=== PATIENT | male | born 1975 | race Caucasian/White ===

== ENCOUNTER 2017-09-21 22:37 | Observation (INO) | payer BC, OTHER ==
[~2017-09-21] VITALS: Ht 182.9 cm; Wt 96.2 kg
[2017-09-21] MEDS ORDERED: PANTOprazole INJ 40 MG in SYRINGE 0 ML IV ONE (23:45)
[2017-09-21] MEDS ORDERED: SODIUM CHLORIDE 0.9% 1000ML 1,000 ML IV ONE (23:45)
[2017-09-22] VITALS (16 sets, daily range): BP systolic 109–129; BP diastolic 53–75; PULSE 57–77; TEMP 36.4–37.1; O2SAT 96–100; Ht 182.9 cm; Wt 96.2 kg
[2017-09-22 00:03] LABS: PTT PATIENT 24.5 SECONDS (21.0-31.0)
[2017-09-22 00:11] LABS: HEMATOCRIT 24.2 % (42-52); HEMOGLOBIN 5.9 g/dL (14.0-18.0); MEAN CORPUSCULAR HEMOGLOBIN 14.1 pg (25-34); MEAN CORPUSCULAR HGB CONC 24.4 g/dl (32-36); PLATELET COUNT 306 K/uL (130-400); RED CELL DISTRIBUTION WIDTH CV 21.6 % (11.5-14.5); RED CELL DISTRIBUTION WIDTH SD 45.4 fL (36.4-46.3); WHITE BLOOD COUNT 5.94 K/uL (4.8-10.8)
[2017-09-22 00:15] LABS: ALBUMIN 3.7 gm/dl (3.4-5.0); ALT/SGPT 16 U/L (12-78); AST/SGOT 8 U/L (15-37); BLOOD UREA NITROGEN 14 mg/dl (7-18); CALCIUM 8.4 mg/dl (8.5-10.1); CARBON DIOXIDE 27 mmol/L (21-32); CREATININE 0.85 mg/dl (0.60-1.40); GLUCOSE 78 mg/dl (70-99); LIPASE 92 U/L (73-393); POTASSIUM 3.9 mmol/L (3.5-5.1); SODIUM 138 mmol/L (136-145)
[2017-09-22 00:19] LABS: ALKALINE PHOSPHATASE 64 U/L (45-117); TOTAL PROTEIN 7.1 gm/dl (6.4-8.2)
[2017-09-22 00:26] LABS: BASO % 0.5 %; BASO ABS # 0.03 K/uL (0-0.2); EOS % 1.3 %; EOS ABS # 0.08 K/uL (0-0.5); IG# 0.02 K/uL (0.00-0.02); LYMPH % 23.4 %; LYMPH ABS # 1.39 K/uL (1.2-3.4); MONO % 12.3 %; MONO ABS # 0.73 K/uL (0.11-0.59); NEUT % 62.2 %; NEUT ABS # 3.69 K/uL (1.4-6.5)
[2017-09-22] MEDS ORDERED: ROPI1TAB PO ×2 (00:33)
[2017-09-22] MEDS ORDERED: PRLSR20 PO (00:33)
[2017-09-22] MEDS ORDERED: SERT50TA PO (00:33)
[2017-09-22] MEDS ORDERED: MAGNESIUM HYDROXIDE SUSP 30 ML UDC PO PRN (02:15)
[2017-09-22] MEDS ORDERED: ALUMINUM/MAGNESIUM/SIMETH (MAALOX MAX) 30 ML UDC PO PRN (02:15)
[2017-09-22] MEDS ORDERED: ONDANSETRON INJ 2 MG/ML 2 ML VIAL IV PRN (02:15)
[2017-09-22] MEDS ORDERED: ACETAMINOPHEN 325 MG TAB PO PRN (02:15)
[2017-09-22] MEDS ORDERED: POLYETHYLENE (MIRALAX) 17 GM PACK PO PRN (02:15)
--- NOTE | 2017-09-22 02:43 | History and Physical ---
History & Physical Date & Time of Service: Sep 22, 2017 at 02:22 Chief Complaint: Low Hemoglobin Primary Care Physician: Johny Collier PA-C History of Present Illness Source: patient 42 y/o M with history of RLS, GERD and hemorrhoids with chronic bleeding. The pt had labs drawn as a routine matter by his employer. He was notified the following day that his hemoglobin was low and told to attend the hospital. He was also informed that he had a high zinc level although additional metal levels were within normal limits. The pt denies SOB, palpitations or light- headedness. He arrived at the hospital as he was instructed to rather than due to symptoms. Initial Hb is 5.9 with an MCV of 58. He was guiac negative in the ER, however, he states he has to strain on the toilet to lose blood. The pt states that he was advised on pursuing hemorrhoid surgery several years ago. He had a colonoscopy and endoscopy 5 years prior due to BRBPR which apparently identified hemorrhoids as the etiology. Past Medical/Surgical History 1) Hemorrhoids with chronic blood loss 2) Restless leg syndrome 3) GERD Family History Father with history of prostate CA Social History Chews tobacco, does not smoke, 1-2 alcoholic beverages daily Smoking Status: Never Smoker Allergies Coded Allergies: No Known Allergies (Unverified , 09/22/17) Home Medications Scheduled Omeprazole (Prilosec), 20 MG PO DAILY Ropinirole (Requip), 1 MG PO QAM Ropinirole (Requip), 3 MG PO HS Sertraline (Zoloft), 50 MG PO DAILY Review of Systems Constitutional: No fever, No chills, No sweats Eyes: No worsening of vision, No eye pain ENT: No hearing loss, No nasal symptoms Respiratory: No cough, No sputum, No wheezing Cardiovascular: No chest pain, No orthopnea, No PND Abdomen: + GI bleeding (chronic BRBPR with BM), No pain, No nausea, No vomiting Musculoskeletal: No joint pain Genitourinary - Male: No hematuria, No dysuria Neurologic: No memory loss, No paralysis, No weakness Psychiatric: No depression symptoms Endocrine: No fatigue Hematologic / Lymphatic: No abnormal bleeding/bruising Integumentary: No rash Allergic / Immunologic: No environmental allergies Physical Exam Vital Signs Date Time Temp Pulse Resp B/P (MAP) Pulse Ox O2 Delivery O2 Flow Rate FiO2 09/22/17 01:36 124/68 97 Room Air 09/22/17 01:30 67 16 09/22/17 01:00 75 23 09/22/17 00:00 60 20 127/84 98 Room Air 09/21/17 23:48 63 09/21/17 22:42 37.1 88 18 128/76 96 Room Air General Appearance: WD/WN, no apparent distress, + pertinent finding (Pale young male in no distress) Head: normocephalic Eyes: normal inspection ENT: normal ENT inspection, pharynx normal Neck: supple, no JVD Respiratory/Chest: chest non-tender, lungs clear, normal breath sounds Cardiovascular: regular rate, rhythm, no edema, no gallop Abdomen/GI: normal bowel sounds, non tender, soft Back: normal inspection, no CVA tenderness Extremities/Musculoskelatal: normal inspection Neurologic/Psych: stereotyper helper II-XII nml as tested, no motor/sensory deficits, alert, oriented x 3 Skin: normal color Diagnostics Laboratory Results Results Past 24 Hours Test 09/21/17 23:30 09/22/17 02:15 09/22/17 02:19 Range/Units White Blood Count 5.94 4.8-10.8 K/uL Red Blood Count 4.17 4.7-6.1 M/uL Hemoglobin 5.9 14.0-18.0 g/dL Hematocrit 24.2 42-52 % Mean Corpuscular Volume 58.0 80-100 fL Mean Corpuscular Hemoglobin 14.1 25-34 pg Mean Corpuscular Hemoglobin Concent 24.4 32-36 g/dl Platelet Count 306 130-400 K/uL Neutrophils (%) (Auto) 62.2 % Lymphocytes (%) (Auto) 23.4 % Monocytes (%) (Auto) 12.3 % Eosinophils (%) (Auto) 1.3 % Basophils (%) (Auto) 0.5 % Neutrophils # (Auto) 3.69 1.4-6.5 K/uL Lymphocytes # (Auto) 1.39 1.2-3.4 K/uL Monocytes # (Auto) 0.73 0.11-0.59 K/uL Eosinophils # (Auto) 0.08 0-0.5 K/uL Basophils # (Auto) 0.03 0-0.2 K/uL RDW Standard Deviation 45.4 36.4-46.3 fL RDW Coefficient of Variation 21.6 11.5-14.5 % Immature Granulocyte % (Auto) 0.3 % Immature Granulocyte # (Auto) 0.02 0.00-0.02 K/uL Hypochromasia PRESENT Poikilocytosis PRESENT Anisocytosis PRESENT Tear Drop Cells 1+ Schistocytes 1+ Absolute Reticulocyte Count 0.04 0.02-0.10 10^6/uL Percent Reticulocyte Count 1.0 0.5-2.0 % Prothrombin Time 10.8 9.0-12.0 SECONDS Prothromb Time International Ratio 1.0 0.9-1.1 Activated Partial Thromboplast Time 24.5 21.0-31.0 SECONDS Partial Thromboplastin Ratio 0.9 Sodium Level 138 136-145 mmol/L Potassium Level 3.9 3.5-5.1 mmol/L Chloride Level 105 98-107 mmol/L Carbon Dioxide Level 27 21-32 mmol/L Anion Gap 6.0 3-11 mmol/L Blood Urea Nitrogen 14 7-18 mg/dl Creatinine 0.85 0.60-1.40 mg/dl Estimated GFR () 123.7 Estimated GFR (Non- 106.7 BUN/Creatinine Ratio 16.3 10-20 Random Glucose 78 70-99 mg/dl Calcium Level 8.4 8.5-10.1 mg/dl Total Bilirubin 0.7 0.2-1 mg/dl Direct Bilirubin 0.2 0-0.2 mg/dl Aspartate Amino Transf (AST/SGOT) 8 15-37 U/L Alanine Aminotransferase (ALT/SGPT) 16 12-78 U/L Alkaline Phosphatase 64 45-117 U/L Troponin I < 0.015 0-0.045 ng/ml Total Protein 7.1 6.4-8.2 gm/dl Albumin 3.7 3.4-5.0 gm/dl Lipase 92 73-393 U/L Impression Assessment and Plan 42 y/o M with history of RLS, GERD and hemorrhoids with chronic bleeding. The pt had labs drawn as a routine matter by his employer. He was notified the following day that his hemoglobin was low and told to attend the hospital. He was also informed that he had a high zinc level although additional metal levels were within normal limits. The pt denies SOB, palpitations or light- headedness. He arrived at the hospital as he was instructed to rather than due to symptoms. Initial Hb is 5.9 with an MCV of 58. 1) Anemia - pt is assigned to the medical floor primarily for transfusions. The most likely explanation for his anemia is chronic blood loss from hemorrhoids as he admits to ongoing bleeding for several years. Slow loss would explain his lack of symptoms as he has had adequate time to adapt. The confounding factor in his anemia is a high zinc level. This may in turn affect copper metabolism leading to low levels, RBC dysfunction and anemia. We have ordered Iron levels, ferritin, TIBC, copper, retic count and a peripheral smear. We may want to source his initial labs in the AM and repeat a Zinc level. Regarding his hemorrhoids and chronic loss, he should be referred to a colorectal surgeon upon DC. I am less concerned currently with additional sources of blood loss or acute blood loss which would change his disposition. Transfusion of 2 units should be adequate in the short-term. 2) RLS - cont Ropinirole 3) GERD - cont PPi Full code - SCDs total time for this admit including review of labs, meds, imaging - discussion with pt and ER attending - 36 min Level of Care Med/Surg Resuscitation Status FULL RESUSCITATION VTE Prophylaxis VTE Risk Assessment Done? Y/N: Yes Risk Level: Low Given or contraindicated: SCD's
[2017-09-22] MEDS ORDERED: IV FLUIDS COMPLETED PRN (05:45)
--- NOTE | 2017-09-22 07:13 | Family Medicine Progress Note ---
Progress Note Date of Service Sep 22, 2017. Subjective Pt evaluation today including: conversation w/ patient, physical exam, chart review, lab review Patient reports that he became aware of low Hgb when receiving a physical for work. Patient denies feeling symptomatic. Denies chest pain, SOB. Patient denies abdominal pain or bloody stools, but does report chronic bleeding hemorrhoids. History of working on power lines. Constitutional: No fever, No chills Respiratory: No cough, No sputum, No wheezing, No shortness of breath Cardiovascular: No chest pain, No palpitations Abdomen: No pain, No nausea, No vomiting, No diarrhea, No GI bleeding Male : No dysuria Medications Current Inpatient Medications Medications (Trade) Dose Ordered Sig/Rene Route Start Time Stop Time Status Last Admin Dose Admin Ropinirole HCl (Requip Tab) 1 mg QAM PO 09/22/17 09:00 10/22/17 08:59 09/22/17 11:20 1 MG Ropinirole HCl (Requip Tab) 3 mg HS PO 09/22/17 21:00 10/22/17 20:59 Sertraline HCl (Zoloft Tab) 50 mg DAILY PO 09/22/17 09:00 10/22/17 08:59 09/22/17 08:11 50 MG Acetaminophen (Tylenol Tab) 650 mg Q4H PRN PO 09/22/17 02:15 10/22/17 02:14 Al Hydrox/Mg Hydrox/Simethicone (Maalox Max Susp) 15 ml Q4H PRN PO 09/22/17 02:15 10/22/17 02:14 Magnesium Hydroxide (Milk Of Magnesia Susp) 30 ml Q6H PRN PO 09/22/17 02:15 10/22/17 02:14 Polyethylene (Miralax Powder Packet) 17 gm DAILY PRN PO 09/22/17 02:15 10/22/17 02:14 Ondansetron HCl (Zofran Inj) 4 mg Q6H PRN IV 09/22/17 02:15 10/22/17 02:14 Miscellaneous (Iv Fluids Completed) 1 ea PRN PRN N/A 09/22/17 05:45 09/22/18 05:44 Objective Vital Signs Date Time Temp Pulse Resp B/P (MAP) Pulse Ox O2 Delivery O2 Flow Rate FiO2 09/22/17 15:54 36.7 63 18 129/75 (93) 100 Room Air 09/22/17 08:00 Room Air 09/22/17 07:20 36.8 69 20 120/66 (84) 96 Room Air 09/22/17 07:00 36.8 69 20 120/66 96 09/22/17 06:30 36.7 57 18 122/69 98 09/22/17 06:15 36.6 62 18 128/53 98 09/22/17 06:00 36.8 62 14 129/66 98 09/22/17 05:00 36.7 62 18 123/63 98 09/22/17 04:30 36.8 61 18 128/66 99 09/22/17 04:12 36.7 77 16 120/73 99 Room Air 09/22/17 04:00 36.9 64 18 127/66 98 09/22/17 03:45 36.8 64 18 124/73 98 09/22/17 03:30 36.8 65 16 129/71 09/22/17 02:35 68 20 126/71 98 09/22/17 01:36 124/68 97 Room Air 09/22/17 01:30 67 16 09/22/17 01:00 75 23 09/22/17 00:00 60 20 127/84 98 Room Air 09/21/17 23:48 63 09/21/17 22:42 37.1 88 18 128/76 96 Room Air Physical Exam General Appearance: WD/WN, no apparent distress Respiratory/Chest: chest non-tender, lungs clear, normal breath sounds Cardiovascular: regular rate, rhythm, no edema, no murmur Abdomen: normal bowel sounds, non tender, soft Neurologic/Psychiatric: alert, normal mood/affect, oriented x 3 Skin: normal color, warm/dry, no rash Laboratory Results 09/22/17 08:27 Red Blood Count 4.72, Mean Corpuscular Volume 61.7 #, Mean Corpuscular Hemoglobin 15.7, Mean Corpuscular Hemoglobin Concent 25.4, Neutrophils (%) (Auto ) 71.2, Lymphocytes (%) (Auto) 18.5, Monocytes (%) (Auto) 8.6, Eosinophils (%) ( Auto) 1.1, Basophils (%) (Auto) 0.4, Neutrophils # (Auto) 3.72, Lymphocytes # ( Auto) 0.97, Monocytes # (Auto) 0.45, Eosinophils # (Auto) 0.06, Basophils # ( Auto) 0.02 09/22/17 08:27 Test 09/21/17 23:30 09/22/17 02:34 09/22/17 08:27 Tear Drop Cells 1+ Schistocytes 1+ Peripheral Blood Smear Path Consult Absolute Reticulocyte Count 0.04 10^6/uL (0.02-0.10) Percent Reticulocyte Count 1.0 % (0.5-2.0) Prothrombin Time 10.8 SECONDS (9.0-12.0) Prothromb Time International Ratio 1.0 (0.9-1.1) Activated Partial Thromboplast Time 24.5 SECONDS (21.0-31.0) Partial Thromboplastin Ratio 0.9 Iron Level 13 mcg/dl (35-175) Total Iron Binding Capacity 480 mcg/dl (250-450) Ferritin 0.9 ng/ml (8.0-388.0) Total Bilirubin 0.7 mg/dl (0.2-1) Direct Bilirubin 0.2 mg/dl (0-0.2) Aspartate Amino Transf (AST/SGOT) 8 U/L (15-37) Alanine Aminotransferase (ALT/SGPT) 16 U/L (12-78) Alkaline Phosphatase 64 U/L (45-117) Troponin I < 0.015 ng/ml (0-0.045) Total Protein 7.1 gm/dl (6.4-8.2) Albumin 3.7 gm/dl (3.4-5.0) Lipase 92 U/L (73-393) White Blood Count 5.23 K/uL (4.8-10.8) Red Blood Count 4.72 M/uL (4.7-6.1) Hemoglobin 7.4 g/dL (14.0-18.0) Hematocrit 29.1 % (42-52) Mean Corpuscular Volume 61.7 fL (80-100) Mean Corpuscular Hemoglobin 15.7 pg (25-34) Mean Corpuscular Hemoglobin Concent 25.4 g/dl (32-36) Platelet Count 311 K/uL (130-400) Neutrophils (%) (Auto) 71.2 % Lymphocytes (%) (Auto) 18.5 % Monocytes (%) (Auto) 8.6 % Eosinophils (%) (Auto) 1.1 % Basophils (%) (Auto) 0.4 % Neutrophils # (Auto) 3.72 K/uL (1.4-6.5) Lymphocytes # (Auto) 0.97 K/uL (1.2-3.4) Monocytes # (Auto) 0.45 K/uL (0.11-0.59) Eosinophils # (Auto) 0.06 K/uL (0-0.5) Basophils # (Auto) 0.02 K/uL (0-0.2) RDW Standard Deviation 53.7 fL (36.4-46.3) RDW Coefficient of Variation 24.7 % (11.5-14.5) Immature Granulocyte % (Auto) 0.2 % Immature Granulocyte # (Auto) 0.01 K/uL (0.00-0.02) Giant Platelets 1+ Hypochromasia PRESENT Poikilocytosis PRESENT Anisocytosis PRESENT Microcytosis PRESENT Anion Gap 6.0 mmol/L (3-11) Est Creatinine Clear Calc Drug Dose 127.3 ml/min Estimated GFR () 120.8 Estimated GFR (Non- 104.2 BUN/Creatinine Ratio 9.5 (10-20) Calcium Level 8.4 mg/dl (8.5-10.1) Assessment and Plan 42 yo male with PMH of chronic bleeding hemorrhoids, 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 Patient came into the ED after being found with severely low Hgb in the outpatient. Hgb in the ED was 5.9. Patient has remained asymptomatic during this period. Patient was transfused 2 units since arrival and Hgb has increased to 7.4. Currently consulting with Hematology and GI. Anemia -2 units transfused, Hbg; 5.9-->7.4 -Following test ordered; Fe, ferritin. Elevated TIBC, Peripheral smear, Copper, Reticulocyte count -Records requested from occupational clinic, possible Zinc toxicity -Hematology consulted, appreciate recommendations Chronic bleeding hemorrhoids -Discovered on colonoscopy 5 years ago -GI consulted, appreciated recommendations Restless Leg syndrome -Ropinirole GERD -Protonix Full Code/SCD's Resident Physician Supervision Note: I interviewed and examined the patient. Discussed with Dr. Jones and agree with findings and plan as documented in the note. Any exceptions or clarifications are listed here: I am not convinced that the patient's anemia is due to is hemorrhoids. Agree with transfusion of additional unit RBCs. Agree with GI consultation. Awaiting Zinc level from outside facility; Zinc toxicity can indirectly cause iron deficiency via cedrick deficiency Documented By: Wenceslao Guzman
[2017-09-22] MEDS ORDERED: INFLUENZA ADMINISTRATION CHARGE ONE (08:00)
[2017-09-22] MEDS ORDERED: INFLUENZA VIRUS QUAD VACCINE 0.5 ML SYR IM. ONE (08:00)
[2017-09-22] MEDS: SERTRALINE HCL 50 MG TAB PO SCH (08:11)
[2017-09-22] MEDS: ROPINIROLE HCL 1 MG TAB PO SCH ×2 (08:11→11:20)
[2017-09-22 08:41] LABS: HEMATOCRIT 29.1 % (42-52); HEMOGLOBIN 7.4 g/dL (14.0-18.0); MEAN CELL VOLUME 61.7 fL (80-100); MEAN CORPUSCULAR HEMOGLOBIN 15.7 pg (25-34); MEAN CORPUSCULAR HGB CONC 25.4 g/dl (32-36); PLATELET COUNT 311 K/uL (130-400); RED CELL DISTRIBUTION WIDTH CV 24.7 % (11.5-14.5); RED CELL DISTRIBUTION WIDTH SD 53.7 fL (36.4-46.3); WHITE BLOOD COUNT 5.23 K/uL (4.8-10.8)
[2017-09-22 09:03] LABS: CALCIUM 8.4 mg/dl (8.5-10.1); CREATININE 0.9 mg/dl (0.60-1.40); POTASSIUM 3.7 mmol/L (3.5-5.1)
[2017-09-22 09:09] LABS: BASO % 0.4 %; BASO ABS # 0.02 K/uL (0-0.2); EOS % 1.1 %; EOS ABS # 0.06 K/uL (0-0.5); IG# 0.01 K/uL (0.00-0.02); LYMPH % 18.5 %; LYMPH ABS # 0.97 K/uL (1.2-3.4); MONO % 8.6 %; MONO ABS # 0.45 K/uL (0.11-0.59); NEUT % 71.2 %; NEUT ABS # 3.72 K/uL (1.4-6.5)
--- NOTE | 2017-09-22 16:16 | Oncology Consultation ---
Oncology/Heme Consultation Date of Consultation: Sep 22, 2017. Attending Physician: Wenceslao Guzman D.O. Reason for Consultation: Iron-deficiency anemia History of Present Illness Mr. Lala is a 42 year old man with a history of restless leg syndrome and what sounds like vasovagal syncope when he has blood drawn. Over the last 6 years of so, he has had intermittent rectal bleeding. The blood is on the outside of the stool and on his toilet tissue. Recently, he's also noticed straining when he defecates and a change in the consistency of his stool. He denies any pain with defecation, anorexia, or weight loss. He states that he has been pale and tired "for a while," but his paints a picture of his being quite fatigued and weak. He had screening blood work for lead levels as part of his job earlier this week. This revealed a hemoglobin in the 5's, so he was sent here for admission. In the ER, he had a hemoglobin of 5.9 and an MCV of 58. Subsequent lab work revealed a ferritin of 0.9. He denies any family history of blood disorders. Family History No family history of blood disorders or anemia Social History Smoking Status: Former Smoker Allergies Coded Allergies: No Known Allergies (Unverified , 09/22/17) Home Medications Scheduled Omeprazole (Prilosec), 20 MG PO DAILY Ropinirole (Requip), 1 MG PO QAM Ropinirole (Requip), 3 MG PO HS Sertraline (Zoloft), 50 MG PO DAILY Current Inpatient Medications Current Inpatient Medications Medications (Trade) Dose Ordered Sig/Rene Route Start Time Stop Time Status Last Admin Dose Admin Ropinirole HCl (Requip Tab) 1 mg QAM PO 09/22/17 09:00 10/22/17 08:59 09/22/17 11:20 1 MG Ropinirole HCl (Requip Tab) 3 mg HS PO 09/22/17 21:00 10/22/17 20:59 Sertraline HCl (Zoloft Tab) 50 mg DAILY PO 09/22/17 09:00 10/22/17 08:59 09/22/17 08:11 50 MG Acetaminophen (Tylenol Tab) 650 mg Q4H PRN PO 09/22/17 02:15 10/22/17 02:14 Al Hydrox/Mg Hydrox/Simethicone (Maalox Max Susp) 15 ml Q4H PRN PO 09/22/17 02:15 10/22/17 02:14 Magnesium Hydroxide (Milk Of Magnesia Susp) 30 ml Q6H PRN PO 09/22/17 02:15 10/22/17 02:14 Polyethylene (Miralax Powder Packet) 17 gm DAILY PRN PO 09/22/17 02:15 10/22/17 02:14 Ondansetron HCl (Zofran Inj) 4 mg Q6H PRN IV 09/22/17 02:15 10/22/17 02:14 Miscellaneous (Iv Fluids Completed) 1 ea PRN PRN N/A 09/22/17 05:45 09/22/18 05:44 Review of Systems Constitutional: + fatigue, No fever, No chills, No weight loss ENT: No unusual epistaxis Respiratory: No shortness of breath Cardiovascular: No chest pain Abdomen: + constipation, + GI bleeding, No pain Musculoskeletal: No joint pain, No muscle pain Genitourinary - Male: No hematuria Hematologic / Lymphatic: + abnormal bleeding/bruising, No swollen lymph nodes Integumentary: No rash, No bleeding Physical Exam Date Time Temp Pulse Resp B/P (MAP) Pulse Ox O2 Delivery O2 Flow Rate FiO2 09/22/17 15:54 36.7 63 18 129/75 (93) 100 Room Air 09/22/17 08:00 Room Air 09/22/17 07:20 36.8 69 20 120/66 (84) 96 Room Air 09/22/17 07:00 36.8 69 20 120/66 96 09/22/17 06:30 36.7 57 18 122/69 98 09/22/17 06:15 36.6 62 18 128/53 98 09/22/17 06:00 36.8 62 14 129/66 98 09/22/17 05:00 36.7 62 18 123/63 98 09/22/17 04:30 36.8 61 18 128/66 99 09/22/17 04:12 36.7 77 16 120/73 99 Room Air 09/22/17 04:00 36.9 64 18 127/66 98 09/22/17 03:45 36.8 64 18 124/73 98 09/22/17 03:30 36.8 65 16 129/71 09/22/17 02:35 68 20 126/71 98 09/22/17 01:36 124/68 97 Room Air 09/22/17 01:30 67 16 09/22/17 01:00 75 23 09/22/17 00:00 60 20 127/84 98 Room Air 09/21/17 23:48 63 09/21/17 22:42 37.1 88 18 128/76 96 Room Air General Appearance: WD/WN, no apparent distress Eyes: EOMI, + pertinent finding (conjunctivae pale) Respiratory/Chest: lungs clear Cardiovascular: regular rate, rhythm Abdomen/GI: non tender, soft Extremities/Musculoskelatal: no pedal edema Neurologic/Psych: alert, oriented x 3 Skin: warm/dry, no rash Laboratory Results Last 24 Hours Test 09/21/17 23:30 09/22/17 02:34 09/22/17 08:27 White Blood Count 5.94 K/uL 5.23 K/uL Red Blood Count 4.17 M/uL 4.72 M/uL Hemoglobin 5.9 g/dL 7.4 g/dL Hematocrit 24.2 % 29.1 % Mean Corpuscular Volume 58.0 fL 61.7 fL Mean Corpuscular Hemoglobin 14.1 pg 15.7 pg Mean Corpuscular Hemoglobin Concent 24.4 g/dl 25.4 g/dl Platelet Count 306 K/uL 311 K/uL Neutrophils (%) (Auto) 62.2 % 71.2 % Lymphocytes (%) (Auto) 23.4 % 18.5 % Monocytes (%) (Auto) 12.3 % 8.6 % Eosinophils (%) (Auto) 1.3 % 1.1 % Basophils (%) (Auto) 0.5 % 0.4 % Neutrophils # (Auto) 3.69 K/uL 3.72 K/uL Lymphocytes # (Auto) 1.39 K/uL 0.97 K/uL Monocytes # (Auto) 0.73 K/uL 0.45 K/uL Eosinophils # (Auto) 0.08 K/uL 0.06 K/uL Basophils # (Auto) 0.03 K/uL 0.02 K/uL RDW Standard Deviation 45.4 fL 53.7 fL RDW Coefficient of Variation 21.6 % 24.7 % Immature Granulocyte % (Auto) 0.3 % 0.2 % Immature Granulocyte # (Auto) 0.02 K/uL 0.01 K/uL Hypochromasia PRESENT PRESENT Poikilocytosis PRESENT PRESENT Anisocytosis PRESENT PRESENT Tear Drop Cells 1+ Schistocytes 1+ Peripheral Blood Smear Path Consult Absolute Reticulocyte Count 0.04 10^6/uL Percent Reticulocyte Count 1.0 % Prothrombin Time 10.8 SECONDS Prothromb Time International Ratio 1.0 Activated Partial Thromboplast Time 24.5 SECONDS Partial Thromboplastin Ratio 0.9 Sodium Level 138 mmol/L 139 mmol/L Potassium Level 3.9 mmol/L 3.7 mmol/L Chloride Level 105 mmol/L 106 mmol/L Carbon Dioxide Level 27 mmol/L 27 mmol/L Anion Gap 6.0 mmol/L 6.0 mmol/L Blood Urea Nitrogen 14 mg/dl 9 mg/dl Creatinine 0.85 mg/dl 0.90 mg/dl Estimated GFR () 123.7 120.8 Estimated GFR (Non- 106.7 104.2 BUN/Creatinine Ratio 16.3 9.5 Random Glucose 78 mg/dl 114 mg/dl Calcium Level 8.4 mg/dl 8.4 mg/dl Iron Level 13 mcg/dl Total Iron Binding Capacity 480 mcg/dl Ferritin 0.9 ng/ml Total Bilirubin 0.7 mg/dl Direct Bilirubin 0.2 mg/dl Aspartate Amino Transf (AST/SGOT) 8 U/L Alanine Aminotransferase (ALT/SGPT) 16 U/L Alkaline Phosphatase 64 U/L Troponin I < 0.015 ng/ml Total Protein 7.1 gm/dl Albumin 3.7 gm/dl Lipase 92 U/L Giant Platelets 1+ Microcytosis PRESENT Est Creatinine Clear Calc Drug Dose 127.3 ml/min Assessment & Plan Mr. 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 His rectal bleeding appears to be the culprit. The description of his bleeding could certainly be consistent with hemorrhoidal bleeding and I have encountered people who become iron-deficient from hemorrhoids. The amount of his bleeding and the recent change in his stool habits and consistency are a bit concerning for another etiology and I think a GI consultation would be reasonable. He also tells me he had a high zinc level on his tox screen. High zinc levels can impair copper absorption and lead to copper deficiency. However , copper deficiency generally leads to pancytopenia with a megaloblastic appearance. A copper level has been ordered so we can follow this up. Otherwise , I would consider giving him another unit of blood, to get him above 8. These units will also serve as iron infusions, though he will certainly need many more infusions to replete his marrow stores. Once he is ready for discharge, I will make arrangements for him to come to my office for IV iron.
--- NOTE | 2017-09-22 17:36 | Medical Student: [facility] ---
Med Student Progress Note Date of Service Sep 22, 2017. Subjective Pt evaluation today including: conversation w/ patient, physical exam, lab review Pain: None PO Intake: NPO Voiding: no voiding problems This is a 42-year-old man with a history of RLS, GERD, and hemorrhoids who is admitted for having an incidental finding of severe anemia of hb 5.9 and elevated zinc levels. Pt states that he has had bleeding hemorrhoids with secondary anemia for 5-7 years. He has been fatigued and has had "zero drive" during this time. After the discovery of his recent abnormal labs drawn after potential occupational exposure to lead, he was told to come to the hospital for further evaluation and treatment. Since his admission, he has received 2 units of RBCs. He reports decreased tiredness since the transfusion. Today he also has intermittent abdominal cramping and is "peeing a lot." ROS is otherwise negative. Review of Systems Constitutional: No fever, No chills Eyes: No worsening of vision Respiratory: No shortness of breath, No dyspnea on exertion Cardiac: No chest pain, No palpitations Abdomen: + pain, + constipation (with straining), No nausea, No vomiting, No diarrhea Male : No dysuria Objective Vital Signs Date Time Temp Pulse Resp B/P (MAP) Pulse Ox O2 Delivery O2 Flow Rate FiO2 09/22/17 15:54 36.7 63 18 129/75 (93) 100 Room Air 09/22/17 08:00 Room Air 09/22/17 07:20 36.8 69 20 120/66 (84) 96 Room Air 09/22/17 07:00 36.8 69 20 120/66 96 09/22/17 06:30 36.7 57 18 122/69 98 09/22/17 06:15 36.6 62 18 128/53 98 09/22/17 06:00 36.8 62 14 129/66 98 09/22/17 05:00 36.7 62 18 123/63 98 09/22/17 04:30 36.8 61 18 128/66 99 09/22/17 04:12 36.7 77 16 120/73 99 Room Air 09/22/17 04:00 36.9 64 18 127/66 98 09/22/17 03:45 36.8 64 18 124/73 98 09/22/17 03:30 36.8 65 16 129/71 2/2/18 02:35 68 20 126/71 98 09/22/17 01:36 124/68 97 Room Air 09/22/17 01:30 67 16 09/22/17 01:00 75 23 09/22/17 00:00 60 20 127/84 98 Room Air 09/21/17 23:48 63 09/21/17 22:42 37.1 88 18 128/76 96 Room Air Physical Exam General Appearance: WD/WN, no apparent distress Eyes: bilateral eyes normal inspection Respiratory/Chest: lungs clear, normal breath sounds, no respiratory distress Cardiovascular: regular rate, rhythm, no edema, no gallop, no murmur Abdomen: normal bowel sounds, non tender, soft Extremities: no pedal edema, no calf tenderness Skin: normal color Laboratory Results Last 24 Hours Test 09/21/17 23:30 09/22/17 02:34 09/22/17 08:27 White Blood Count 5.94 K/uL 5.23 K/uL Red Blood Count 4.17 M/uL 4.72 M/uL Hemoglobin 5.9 g/dL 7.4 g/dL Hematocrit 24.2 % 29.1 % Mean Corpuscular Volume 58.0 fL 61.7 fL Mean Corpuscular Hemoglobin 14.1 pg 15.7 pg Mean Corpuscular Hemoglobin Concent 24.4 g/dl 25.4 g/dl Platelet Count 306 K/uL 311 K/uL Neutrophils (%) (Auto) 62.2 % 71.2 % Lymphocytes (%) (Auto) 23.4 % 18.5 % Monocytes (%) (Auto) 12.3 % 8.6 % Eosinophils (%) (Auto) 1.3 % 1.1 % Basophils (%) (Auto) 0.5 % 0.4 % Neutrophils # (Auto) 3.69 K/uL 3.72 K/uL Lymphocytes # (Auto) 1.39 K/uL 0.97 K/uL Monocytes # (Auto) 0.73 K/uL 0.45 K/uL Eosinophils # (Auto) 0.08 K/uL 0.06 K/uL Basophils # (Auto) 0.03 K/uL 0.02 K/uL RDW Standard Deviation 45.4 fL 53.7 fL RDW Coefficient of Variation 21.6 % 24.7 % Immature Granulocyte % (Auto) 0.3 % 0.2 % Immature Granulocyte # (Auto) 0.02 K/uL 0.01 K/uL Hypochromasia PRESENT PRESENT Poikilocytosis PRESENT PRESENT Anisocytosis PRESENT PRESENT Tear Drop Cells 1+ Schistocytes 1+ Peripheral Blood Smear Path Consult Absolute Reticulocyte Count 0.04 10^6/uL Percent Reticulocyte Count 1.0 % Prothrombin Time 10.8 SECONDS Prothromb Time International Ratio 1.0 Activated Partial Thromboplast Time 24.5 SECONDS Partial Thromboplastin Ratio 0.9 Sodium Level 138 mmol/L 139 mmol/L Potassium Level 3.9 mmol/L 3.7 mmol/L Chloride Level 105 mmol/L 106 mmol/L Carbon Dioxide Level 27 mmol/L 27 mmol/L Anion Gap 6.0 mmol/L 6.0 mmol/L Blood Urea Nitrogen 14 mg/dl 9 mg/dl Creatinine 0.85 mg/dl 0.90 mg/dl Estimated GFR () 123.7 120.8 Estimated GFR (Non- 106.7 104.2 BUN/Creatinine Ratio 16.3 9.5 Random Glucose 78 mg/dl 114 mg/dl Calcium Level 8.4 mg/dl 8.4 mg/dl Iron Level 13 mcg/dl Total Iron Binding Capacity 480 mcg/dl Ferritin 0.9 ng/ml Total Bilirubin 0.7 mg/dl Direct Bilirubin 0.2 mg/dl Aspartate Amino Transf (AST/SGOT) 8 U/L Alanine Aminotransferase (ALT/SGPT) 16 U/L Alkaline Phosphatase 64 U/L Troponin I < 0.015 ng/ml Total Protein 7.1 gm/dl Albumin 3.7 gm/dl Lipase 92 U/L Giant Platelets 1+ Microcytosis PRESENT Est Creatinine Clear Calc Drug Dose 127.3 ml/min Assessment and Plan Assessment and Plan: This is a 42-year-old man with a history of RLS, GERD, hemorrhoids with secondary anemia admitted for the evaluation and treatment of anemia and elevated zinc levels. ANEMIA - Microcytosis, hypochromia, decreased serum iron, increased TIBC, decreased ferritin with bleeding history fits constellation of iron deficiency anemia. However, with intermittent nature of the bleeding and severe microcytosis, it is doubtful that bleeding is the sole source of his anemia. Conversation with hematology revealed that elevated zinc can interfere with copper levels, and copper dysregulation can lead to iron deficiency anemia. We have contacted the lab the patient reported results from to confirm the zinc abnormalities. We have also ordered copper levels here but are awaiting results. Of note, pt has no family history of anemia, bleeding diathesis, or Mediterranean heritage. - 2 units of blood have been ordered. We will also give IV iron to help correct the anemia. - GI has been consulted to evaluate need for endoscopy/colonoscopy. GERD - Stable. Continue omeprazole ANXIETY - Stable. Continue sertraline. RESTLESS LEG SYNDROME - Stable. Continue ropinirole. DVT PPX - Encouraged ambulation as tolerated. DISPOSITION - After infusion of iron and GI consultation, pt is ready for discharge. Due to chronic nature of the anemia, pt is relatively asymptomatic and stable. The remainder of the anemia work-up can be completed on an outpatient basis.
--- NOTE | 2017-09-22 18:23 | GASTROINTESTINAL CONSULTATION ---
DATE OF CONSULTATION: 09/22/2017 REASON FOR CONSULTATION: Severe iron deficiency anemia and rectal bleeding. HISTORY OF PRESENT ILLNESS: The patient is a 42-year-old male who states that he has had intermittent bright red rectal bleeding with bowel movements for 7 years attributed to hemorrhoids. He has had no abdominal pain, weight loss, fevers, night sweats, nausea, vomiting, or blood in the urine. He is a trimmer operator and climbs telephone poles and he was up in buckets and as part of his routine tests, he and lead and zinc levels drawn but his blood count also came back severely low. He was referred to his primary care physician who was found him to be profoundly iron deficient with microcytic indices, and he was referred for admission. So far has received 2 units of red blood cells for hemoglobin of 5.9 and will be receiving another one later. The patient reports no significant change in bowels and reports that his ethnic background is mostly Khmer, [place]ian. There is no family history of similar problem. PAST MEDICAL HISTORY: Remarkable for hemorrhoids, restless leg syndrome and esophageal reflux. FAMILY HISTORY: Positive for his father has prostate cancer. He has a cousin with Crohn disease. MEDICATIONS: Prilosec, Requip and Zoloft. ALLERGIES: None. SOCIAL HISTORY: The patient is , does not smoke and has 1-2 alcoholic beverages a day. REVIEW OF SYSTEMS: Negative for 12 systems. PHYSICAL EXAMINATION: GENERAL: The patient appears awake, alert, in no acute distress. VITAL SIGNS: Blood pressure is 124/68, pulse 67, room air saturations 97%. LUNGS: Clear. HEART: Showed a normal S1 and S2, regular rate and rhythm without murmurs, rubs, or gallops. ABDOMEN: Soft. No masses, tenderness, or hepatosplenomegaly. RECTAL: Showed no masses or tenderness. There was no external hemorrhoids evident. IMPRESSION AND PLAN: The patient has severe iron deficiency anemia, this is obviously occurred over a long period of time and I suspect that he may have a malabsorptive disease such as celiac disease. I plan on ordering a tissue transglutaminase and IgA level. He will need an upper endoscopy with small bowel biopsy and a colonoscopy to evaluate the rectal bleeding as an outpatient. Dr. Jones will be covering this weekend and will be able to make these arrangements as an outpatient.
[2017-09-22] MEDS ORDERED: ROPINIROLE HCL 1 MG TAB PO SCH (21:00)
--- NOTE | 2017-09-22 21:32 | EMERGENCY ROOM VISIT NOTE ---
History First contact with patient: 23:21 Chief Complaint: ABNORMAL LABS Stated Complaint: ANEMIA History of Present Illness The patient is a 42 year old male who presents to the Emergency Room with complaints of abnormal outpatient blood work. 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 He states that his lead level was normal, that he had an elevated zinc level. He was also informed that he had low red blood cells, and was referred to his PCP for evaluation. The patient went to his primary care physician today, where labs were drawn, and the patient was found to have a hemoglobin of 6.0. The patient is unsure of his other lab results. He reports a history of chronic hemorrhoids that will intermittently bleed. He does not have pain or injury. He considers himself usually healthy, but has felt fatigued for some time. There is dyspnea with walking up and down stairs, but not with walking on level ground. He has not missed work. No chest pain or chest tightness. He does have restless leg syndrome, and takes Requip for this. He believes that he has had an upper endoscopy and colonoscopy in the past, that were reportedly normal. He does not remember why these were performed. He rates his current discomfort a 0/10. Review of Systems More than 10 systems were reviewed and otherwise negative with the exception of history of present illness. Past Medical/Surgical History Medical Problems: (1) Anemia Family History No pertinent family history Social History Smoking Status: Former Smoker Occupation Status: employed Current/Historical Medications Scheduled Omeprazole (Prilosec), 20 MG PO DAILY Ropinirole (Requip), 1 MG PO QAM Ropinirole (Requip), 3 MG PO HS Sertraline (Zoloft), 50 MG PO DAILY Physical Exam Vital Signs Date Time Temp Pulse Resp B/P (MAP) Pulse Ox O2 Delivery O2 Flow Rate FiO2 09/22/17 01:36 124/68 97 Room Air 09/22/17 01:30 67 16 09/22/17 01:00 75 23 09/22/17 00:00 60 20 127/84 98 Room Air 09/21/17 23:48 63 09/21/17 22:42 37.1 88 18 128/76 96 Room Air Physical Exam VITALS: Vitals are noted on the nurse's note and reviewed by myself. Vital signs stable. GENERAL: Very pale appearing white male who is comfortable and cooperative with the examination. EYES: Pupils equal round and reactive to light and accommodation. Conjunctivae without injection, sclerae without icterus. Extraocular movements intact. NOSE: Patent, turbinates without inflammation or discharge. MOUTH: Mucous membranes moist. Tonsils are not enlarged. Pharynx without erythema, blood, or exudate. Uvula midline. Airway patent. NECK: Supple without nuchal rigidity. No lymphadenopathy. No thyromegaly. Cervical spine is nontender. HEART: Regular rate and rhythm without murmurs gallops or rubs. LUNGS: Clear to auscultation bilaterally without wheezes, rales or rhonchi. No retractions or accessory muscle use. ABDOMEN: Positive normal bowel sounds x 4. Soft, nontender, without masses or organomegaly. No guarding or rebound tenderness. : Mild perirectal hemorrhoidal tissue noted. Guaiac is negative. MUSCULOSKELETAL: No muscle atrophy, erythema, or edema noted. Full range of motion without joint tenderness in all extremities. Medical Decision & Procedures Laboratory Results Test 09/21/17 23:30 Tear Drop Cells 1+ Schistocytes 1+ Peripheral Blood Smear Path Consult Absolute Reticulocyte Count 0.04 10^6/uL (0.02-0.10) Percent Reticulocyte Count 1.0 % (0.5-2.0) Prothrombin Time 10.8 SECONDS (9.0-12.0) Prothromb Time International Ratio 1.0 (0.9-1.1) Activated Partial Thromboplast Time 24.5 SECONDS (21.0-31.0) Partial Thromboplastin Ratio 0.9 Iron Level 13 mcg/dl (35-175) Total Iron Binding Capacity 480 mcg/dl (250-450) Ferritin 0.9 ng/ml (8.0-388.0) Total Bilirubin 0.7 mg/dl (0.2-1) Direct Bilirubin 0.2 mg/dl (0-0.2) Aspartate Amino Transf (AST/SGOT) 8 U/L (15-37) Alanine Aminotransferase (ALT/SGPT) 16 U/L (12-78) Alkaline Phosphatase 64 U/L (45-117) Troponin I < 0.015 ng/ml (0-0.045) Total Protein 7.1 gm/dl (6.4-8.2) Albumin 3.7 gm/dl (3.4-5.0) Lipase 92 U/L (73-393) Medications Administered Medications (Trade) Dose Ordered Sig/Rene Route Start Time Stop Time Status Last Admin Dose Admin Sodium Chloride 1,000 ml @ 999 mls/hr Q1H1M ONCE IV 09/21/17 23:45 09/22/17 00:45 DC 09/21/17 23:45 999 MLS/HR Pantoprazole Sodium 40 mg/ Syringe 10 ml @ 5 mls/min NOW ONCE IV 09/21/17 23:45 09/21/17 23:46 DC 09/22/17 00:00 5 MLS/MIN ED Course Physical exam and history were performed. Nursing notes, EMR, and Medication List were personally reviewed. Patient appears to have reports of abnormal outpatient labs showing a severe anemia. On examination the patient has essentially normal vital signs. He does not appear toxic at this time, although he is ill. There is no icterus. Guaiac is negative. IV access was established and labs were obtained. The patient was given IV Protonix and IV saline. Blood bank was ordered. The patient's blood work is as above and was reviewed. He does not have a significantly elevated white blood cell count. He does have a profound anemia at 5.9. Indices appear most likely to be consistent with an iron deficient anemia. He does not have significant electrolyte imbalance. Troponin is negative. His other labs are fairly unremarkable. Overall the patient does not appear well for discharge home. He has a profound anemia and no distinct etiology at this time. The anemia may be from metal toxicities or possibly chronic internal hemorrhoids. The case was discussed with my attending physician, Dr. Nash, who completed consent for transfusions. The patient was ordered 2 units for transfusion. The case was discussed with the on-call hospitalist, who agreed to evaluate the patient here in the department. Please see their dictation for further patient course, plan , and disposition. The chart was completed utilizing [employer] Voice Recognition Software. Grammatical errors, random word insertions, pronoun errors, and incomplete sentences are an occasional consequence of this system due to software limitations, ambient noise, and hardware issues. Any formal questions or concerns about the content, text, or information contained within the body of this dictation should be directly addressed to the provider for clarification. . Medical Decision Differential diagnosis: Etiologies such as diverticulosis, AVM, coagulopathy, colitis, inflammatory bowel disease, malignancy, Anabelle-Pulido tear, esophagitis, peptic ulcer disease , variceal bleed, gastritis, epistaxis, fissure, hemorrhoids, as well as others were entertained. Impression Primary Impression: Severe anemia Departure Information Dispostion Still a Patient Condition FAIR Referrals Johny Collier PA-C (PCP) Forms WORK / SCHOOL INSTRUCTIONS, HOME CARE DOCUMENTATION FORM, IMPORTANT VISIT INFORMATION Patient Instructions [facility]
[2017-09-23 06:39] LABS: HEMATOCRIT 31.9 % (42-52); HEMOGLOBIN 8.5 g/dL (14.0-18.0); MEAN CELL VOLUME 63.7 fL (80-100); MEAN CORPUSCULAR HGB CONC 26.6 g/dl (32-36); PLATELET COUNT 277 K/uL (130-400); RED CELL DISTRIBUTION WIDTH CV 26.7 % (11.5-14.5); RED CELL DISTRIBUTION WIDTH SD 60.4 fL (36.4-46.3); WHITE BLOOD COUNT 5.69 K/uL (4.8-10.8)
[2017-09-23 06:53] LABS: BASO % 1.1 %; BASO ABS # 0.06 K/uL (0-0.2); EOS % 2.3 %; EOS ABS # 0.13 K/uL (0-0.5); IG# 0.01 K/uL (0.00-0.02); LYMPH % 25.7 %; LYMPH ABS # 1.46 K/uL (1.2-3.4); MONO % 14.1 %; NEUT % 56.6 %; NEUT ABS # 3.23 K/uL (1.4-6.5)
[2017-09-23 06:54] LABS: CALCIUM 8.1 mg/dl (8.5-10.1); CREATININE 0.87 mg/dl (0.60-1.40); POTASSIUM 4.1 mmol/L (3.5-5.1)
[2017-09-23 07:06] VITALS: BP 129/75; PULSE 58; TEMP 36.4; O2SAT 100
--- NOTE | 2017-09-23 08:49 | Hematology/Oncology Prog Note ---
Hematology/Onc Progress Note Date of Service Sep 23, 2017. Diagnoses Severe iron deficiency anemia Medications Medications Administered Medications (Trade) Dose Ordered Sig/Rene Route Start Time Stop Time Status Last Admin Dose Admin Sodium Chloride 1,000 ml @ 999 mls/hr Q1H1M ONCE IV 09/21/17 23:45 09/22/17 00:45 DC 09/21/17 23:45 999 MLS/HR Pantoprazole Sodium 40 mg/ Syringe 10 ml @ 5 mls/min NOW ONCE IV 09/21/17 23:45 09/21/17 23:46 DC 09/22/17 00:00 5 MLS/MIN Ropinirole HCl (Requip Tab) 1 mg QAM PO 09/22/17 09:00 10/22/17 08:59 09/22/17 11:20 1 MG Ropinirole HCl (Requip Tab) 3 mg HS PO 09/22/17 21:00 10/22/17 20:59 09/22/17 21:15 3 MG Sertraline HCl (Zoloft Tab) 50 mg DAILY PO 09/22/17 09:00 10/22/17 08:59 09/22/17 08:11 50 MG Subjective Mr. Lala looks better today and he has responded appropriately to 2 units of PRBCs. His energy is up and he slept better last night. Review of Systems: Constitutional: + fatigue (improved), No fever ENT: No unusual epistaxis Respiratory: No cough Cardiovascular: No chest pain Abdomen: No pain Musculoskeletal: No joint pain Heme: No abnormal bleeding/bruising Vital Signs Vital Signs Past 12 Hours Date Time Temp Pulse Resp B/P (MAP) Pulse Ox O2 Delivery O2 Flow Rate FiO2 09/23/17 07:06 36.4 58 18 129/75 (93) 100 Room Air 09/23/17 01:02 Room Air 09/22/17 23:51 36.7 65 20 127/66 (86) 98 Room Air Physical Exam Constitutional: General Apperance: heathly-appearing Level of Distress: NAD Psychiatric: Mental Status: active & alert Orientation: oriented except where noted Lungs: Auscuitation: breath sounds normal Cardiovascular: Heart Auscultation: RRR Abdomen: Inspection & Palpation: soft, non-distended Extremities: no edema Laboratory Last 24 Hours Test 09/23/17 05:34 White Blood Count 5.69 K/uL Red Blood Count 5.01 M/uL Hemoglobin 8.5 g/dL Hematocrit 31.9 % Mean Corpuscular Volume 63.7 fL Mean Corpuscular Hemoglobin 17.0 pg Mean Corpuscular Hemoglobin Concent 26.6 g/dl Platelet Count 277 K/uL Neutrophils (%) (Auto) 56.6 % Lymphocytes (%) (Auto) 25.7 % Monocytes (%) (Auto) 14.1 % Eosinophils (%) (Auto) 2.3 % Basophils (%) (Auto) 1.1 % Neutrophils # (Auto) 3.23 K/uL Lymphocytes # (Auto) 1.46 K/uL Monocytes # (Auto) 0.80 K/uL Eosinophils # (Auto) 0.13 K/uL Basophils # (Auto) 0.06 K/uL RDW Standard Deviation 60.4 fL RDW Coefficient of Variation 26.7 % Immature Granulocyte % (Auto) 0.2 % Immature Granulocyte # (Auto) 0.01 K/uL Large Platelets 1+ Hypochromasia PRESENT Poikilocytosis PRESENT Anisocytosis PRESENT Microcytosis PRESENT Tear Drop Cells 1+ Ovalocytes 1+ Sodium Level 139 mmol/L Potassium Level 4.1 mmol/L Chloride Level 105 mmol/L Carbon Dioxide Level 29 mmol/L Anion Gap 5.0 mmol/L Blood Urea Nitrogen 9 mg/dl Creatinine 0.87 mg/dl Est Creatinine Clear Calc Drug Dose 131.7 ml/min Estimated GFR () 122.5 Estimated GFR (Non- 105.7 BUN/Creatinine Ratio 10.6 Random Glucose 85 mg/dl Calcium Level 8.1 mg/dl Immunoglobulin A 219.0 mg/dL Assessment & Plan Mr. Lala will need several weeks of IV iron to replace his iron stores. I will arrange for this as an outpatient. I will have my office contact him next week to make arrangements to begin iron infusions either late next week or the following. I agree with the workup as described by WING and appreciate their input. I will sign off for now, but will be happy to check back in if new issues arise.
[2017-09-23] MEDS: SERTRALINE HCL 50 MG TAB PO SCH (08:52)
[2017-09-23 09:00] VITALS: O2SAT 100
[2017-09-23] MEDS: ROPINIROLE HCL 1 MG TAB PO SCH (09:30)
--- NOTE | 2017-09-23 11:40 | GASTROENTEROLOGY PROGRESS NOTE ---
DATE: 09/23/2017 HISTORY OF PRESENT ILLNESS: The patient admitted for significant iron deficiency anemia with rectal bleeding. Chart reviewed, patient examined. The patient responded to transfusion of 3 units with a hemoglobin from 5.9 on admission to 28.5 today. The patient did not have any rectal bleeding today on today's bowel movement. Historically, the patient has no nausea, vomiting, abdominal pain. Per reports, rectal bleeding is generally bright red blood that can occur for a day or 2 and not be present for several days or weeks. This has been occurring for approximately 7 years. His stool habits do fluctuate between constipation and occasional diarrhea. The patient did report a sister with Crohn's disease. He is not aware of any history of colorectal cancer. The patient does not take NSAIDs or aspirin. VITAL SIGNS: Today, the patient is afebrile at 36.4, blood pressure 129/75, room air 100%, respirations 18. REVIEW OF SYSTEMS: Otherwise noncontributory based on a 13-point exam except for mentioned above. The patient denies odynophagia or dysphagia. He does not recall any recent blood work for comparison. CURRENT MEDICATIONS: Include Requip, sertraline, polyethylene glycol for constipation, p.r.n. Zofran. OTHER LABORATORY STUDIES: Today, white count 5.69, hemoglobin 8.5. MCV 63.7, platelets 277,000. Serum chemistry IgA is normal; however, tTG is pending at this time for celiac marker. Copper and zinc levels are pending. PHYSICAL EXAMINATION: GENERAL: The patient is awake, alert and oriented x3. HEENT: Sclerae are anicteric. Conjunctivae moist. Oral mucosa moist. HEART: Normal S1, S2. LUNGS: Clear to auscultation. ABDOMEN: Soft, flat, nontender, nondistended with good bowel sounds. EXTREMITIES: Without clubbing, cyanosis or edema. RECTAL: Deferred. IMPRESSION AND PLAN: The patient responded reasonably well to 3 units of packed red blood cells and it is currently 8.5 without any signs of overt gastrointestinal bleeding. This is a chronic anemia of uncertain etiology. Malabsorptive conditions may be a culprit; however, he has had several years of intermittent rectal bleeding of unclear etiology. There is a family history of Crohn's disease. I made the following recommendations. We will plan for an outpatient upper endoscopy, push enteroscopy and colonoscopy over the next several days as the patient's schedule permits. He has been seeing a roofing foreman who is recommending several weeks of IV iron replacement. He should have hemoglobin serially addressed. Further recommendations once tTG is available. We will also take biopsies at the time of the upper endoscopy to exclude mucosal features of celiac disease. There are, however, no other sources of gastrointestinal symptoms such as significant diarrhea or weight loss known at this time for a malabsorptive condition. All questions answered.
[2017-09-23 15:14] VITALS: BP 113/68; PULSE 62; TEMP 36.8; O2SAT 99
--- NOTE | 2017-09-23 15:14 | Discharge Instructions ---
Discharge Instructions Date of Service Sep 23, 2017. Admission Reason for Admission: Anemia Discharge Discharge Diagnosis / Problem: Iron Deficiency Anemia Discharge Goals Goal(s): Improve function, Improve disease control, Improve nutritional status , Learn about illness, Diagnostic testing Activity Recommendations Activity Limitations: per Instructions/Follow-up section . Instructions / Follow-Up Instructions / Follow-Up During this visit you were treated and evaluated for severe iron deficiency anemia. Your hemoglobin level was 5.9 on admission and after 3 units of blood has increased to 8.4. Normal is around 15 for males, so you are still considered anemic. Because of this, you will be following up with hematology for outpatient iron supplementation. They will be in touch with you next week to set this up In addition, the gastroenterology team would like to evaluate you further for the reason you may be anemic, which may or may not be related to your chronic hemorrhoids. Their office will also be in touch to set up your endoscopy procedures. We are still waiting to hear back what your copper level and zinc level are today. We recommend you not participate in activities at work that require you to be elevated off of the ground. Follow up with your PCP within 1 week of this visit. If you notice any weakness, dizziness, or fainting sensation, please return to the ED or your primary care physician. Current Hospital Diet Patient's current hospital diet: Regular Diet Discharge Diet Recommended Diet: Regular Diet Pending Studies Studies pending at discharge: yes List of pending studies: Zinc and Copper levels Medical Emergencies . Who to Call and When: Medical Emergencies: If at any time you feel your situation is an emergency, please call 911 immediately. . Non-Emergent Contact Non-Emergency issues call your: Primary Care Provider . . "Provider Documentation" section prepared by Gloria Mondragon. . VTE Core Measure Inpt VTE Proph given/why not?: SCD's
[2017-09-23 15:38] VITALS: BP 113/68; PULSE 62; TEMP 36.8; O2SAT 99
--- NOTE | 2017-09-23 23:41 | Discharge Summary ---
Discharge Summary Date of Service Sep 23, 2017. Discharge Summary Admission Date: Sep 22, 2017 at 02:19 Discharge Date: Sep 23, 2017 Discharge Disposition: Home Principal Diagnosis: Iron deficiency anemia Problems/Secondary Diagnoses: chronic hemorrhoids, restless leg syndrome, gerd Consultations: GI, Hematology/Oncology Medication Reconciliation Continued Medications: Omeprazole (Prilosec) 20 Mg Capcr 20 MG PO DAILY, CAP Ropinirole (Requip) 1 Mg Tab 1 MG PO QAM, TAB Ropinirole (Requip) 1 Mg Tab 3 MG PO HS, TAB Sertraline (Zoloft) 50 Mg Tab 50 MG PO DAILY, TAB Discharge Exam ROS Constitutional: No fever, No chills Respiratory: No cough, No sputum, No wheezing, No shortness of breath Cardiovascular: No chest pain, No palpitations Abdomen: No pain, No nausea, No vomiting, No diarrhea, No GI bleeding Male : No dysuria PE General Appearance: WD/WN, no apparent distress Respiratory/Chest: chest non-tender, lungs clear, normal breath sounds Cardiovascular: regular rate, rhythm, no edema, no murmur Abdomen: normal bowel sounds, non tender, soft Neurologic/Psychiatric: alert, normal mood/affect, oriented x 3 Skin: normal color, warm/dry, no rash Hospital Course 42 yo male with PMH of chronic bleeding hemorrhoids, 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 Patient came into the ED after being found with severely low Hgb in the outpatient setting. Hgb in the ED was 5.9. Patient has remained asymptomatic during this period. Patient was transfused 3 units since arrival and Hgb has increased to 8.4. Anemia -3 units transfused, Hbg; 5.9-->8.4 -Following tests ordered; Fe 13, ferritin 0.9. Elevated TIBC, Copper pending -Records requested from occupational clinic, possible Zinc toxicity. Zinc level also pending. -Hematology consulted, recommendation for outpatient iron infusions which will be set up by hematology. Chronic bleeding hemorrhoids -Discovered on colonoscopy 5 years ago -GI consulted, will plan for panendoscopy as outpatient. -Negative celiac disease testing Restless Leg syndrome -Ropinirole as prescribed GERD -Continue prilosec Resident Physician Supervision Note: I was present with the resident physician during the history and exam. I discussed the case with the resident and agree with the findings and plan as documented in the note. The patient was without complaint on the day of discharge. Outpatient appointments were arranged with hematology and gastroenterology. Pending laboratory results include serum zinc and copper; I will follow up with these lab results and forward to hematology and gastroenterology, as well as the patient. Documented By: Wenceslao Guzman Total Time Spent: Less than 30 minutes This includes examination of the patient, discharge planning, medication reconciliation, and communication with other providers. Discharge Instructions Please refer to the electronic Patient Visit Report (Discharge Instructions) for additional information. Additional Copies To Johny Collier PA-C Resident Tracking Resident Involvement: Resident Care Provided Care Provided: Adult [facility]
== END 2017-09-23 16:33 | disposition home or self-care (01) ==
LOC: C.EDB 22:38 → C.MS2W 09-22 02:19 → ENRESERV 09-22 02:24
PROVIDERS: ADMIT Internal Medicine; ATTEND Family Medicine
DX: D50.9 Iron deficiency anemia, unspecified (principal); K64.9 Unspecified hemorrhoids; G25.81 Restless legs syndrome; K21.9 Gastro-esophageal reflux disease without esophagitis; Z87.891 Personal history of nicotine dependence